=== PATIENT | female | born 1990 | race Hispanic/Latino ===

== ENCOUNTER 2018-01-31 06:32 | Emergency (ER) | payer SELFPAY ==
[2018-01-31] MEDS ORDERED: KETOROLAC 30 MG/ML INJ ONE (07:20)
--- NOTE | 2018-01-31 07:39 | ER ---
Nurse's Notes [facility] Name: Neha See Age: 27 yrs Sex: Female : 1990 Arrival Date: 01/31/2018 Time: 06:33 Bed 4 Private MD: Vasquez Mccain E Diagnosis: Endometriosis;Abdominal and pelvic pain Presentation: 01/31 06:40 Presenting complaint: Patient states: I'm having lower abdominal cramping and tl2 inflammation. I was diagnosed with endometriosis 2 years ago but haven't had any issues since then. I think I just need an anti inflammatory. Transition of care: patient was not received from another setting of care. Onset of symptoms was January 30, 2018. Initial Sepsis Screen: Does the patient meet any 2 criteria? No. Patient's initial sepsis screen is negative. Does the patient have a suspected source of infection? No. Patient's initial sepsis screen is negative. Care prior to arrival: None. 06:40 Method Of Arrival: Ambulatory tl2 06:40 Acuity: ARVIN 4 tl2 Triage Assessment: 06:43 General: Appears in no apparent distress. comfortable, Behavior is calm, cooperative, tl2 appropriate for age. Pain: Complains of pain in suprapubic area Pain radiates to back Pain currently is 5 out of 10 on a pain scale. Quality of pain is described as crampy. Neuro: Level of Consciousness is awake, alert, obeys commands, Oriented to person, place, time, situation. Cardiovascular: Denies chest pain. Respiratory: Airway is patent Respiratory effort is even, unlabored, Respiratory pattern is regular, symmetrical. GI: Abdomen is non-distended, Reports lower abdominal pain, cramping, Patient currently denies diarrhea, nausea, vomiting. : Denies discharge, vaginal bleeding. Derm: Skin is pink, warm \T\ dry. 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 - Social history:: Smoking status: Patient/guardian denies using tobacco. Screenin:45 Abuse screen: Denies threats or abuse. Nutritional screening: No deficits noted. tl2 Tuberculosis screening: No symptoms or risk factors identified. Fall Risk None identified. Assessment: 06:45 General: see triage assessment. tl2 07:40 General: Appears in no apparent distress. comfortable, Behavior is calm, cooperative. iw Pain: Complains of pain in suprapubic area. Neuro: Level of Consciousness is awake, alert, obeys commands, Oriented to person, place, time, Moves all extremities. Full function. Cardiovascular: Capillary refill < 3 seconds in bilateral fingers Patient's skin is warm and dry. GI: Bowel sounds present X 4 quads. Abd is soft and non tender X 4 quads. Reports lower abdominal pain. : Reports pain in suprapubic area. Derm: Skin is pink, warm \T\ dry. normal. Musculoskeletal: Range of motion: intact in all extremities. Vital Signs: 06:43 BP 116 / 72; Pulse 77; Resp 18; Temp 97.6; Pulse Ox 99% on R/A; Weight 77.11 kg; Height tl2 5 ft. 3 in. (160.02 cm); Pain 5/10; 06:43 Body Mass Index 30.11 (77.11 kg, 160.02 cm) tl2 ED Course: 06:33 Patient arrived in ED. am2 06:34 Vasquez Mccain MD is Private Physician. am2 06:36 Vishal Kraus, RN is Primary Nurse. bp 06:43 Triage completed. tl2 06:43 Arm band placed on right wrist. tl2 06:44 Fritz Arriaga PA is PHCP. jr8 06:44 Arben Rollins MD is Attending Physician. jr8 06:45 Patient has correct armband on for positive identification. Bed in low position. Call tl2 light in reach. Side rails up X 1. 07:20 Primary Nurse role handed off by Vishal Kraus, RN iw 07:20 Coretta Ayoub, RN is Primary Nurse. iw 07:53 No provider procedures requiring assistance completed. Patient did not have IV access iw during this emergency room visit. Administered Medications: 07:36 Drug: TORadol 60 mg Route: IM; Site: right gluteus; hj 07:54 Follow up: Response: No adverse reaction iw Outcome: 07:39 Discharge ordered by . jr8 07:53 Discharged to home ambulatory. iw 07:53 Condition: good 07:53 Discharge instructions given to patient, Instructed on discharge instructions, follow up and referral plans. medication usage, Demonstrated understanding of instructions, follow-up care, medications, Prescriptions given X 2. 07:54 Patient left the ED. iw Signatures: Coretta Ayoub RN RN Fritz Reeder PA PA jr8 Wei Wang RN RN hj Knox, Taylor, RN RN tl2 Summer Lee am2 Vishal Kraus RN RN bp
--- NOTE | 2018-01-31 07:39 | EDPHYS ---
Physician Documentation [facility] Name: Neha See Age: 27 yrs Sex: Female : 1990 Arrival Date: 01/31/2018 Time: 06:33 Bed 4 Private MD: Vasquez Mccain E ED Physician Arben Rollins HPI: 01/31 07:37 This 27 yrs old Female presents to ER via Ambulatory with complaints of jr8 Abdominal Swelling. 07:37 The patient presents with abdominal pain in the lower abdomen. Onset: The jr8 symptoms/episode began/occurred acutely, yesterday. The symptoms do not radiate. Associated signs and symptoms: none. The symptoms are described as crampy, dull. Modifying factors: The symptoms are alleviated by nothing, the symptoms are aggravated by nothing. Severity of pain: At its worst the pain was mild in the emergency department the pain is unchanged. The patient has experienced similar episodes in the past, several times. The patient has not recently seen a physician. History of endometriosis. Stated that she has pain on/off that sometimes is worse and requires antiinflammatory medicine. Started to become worse yesterday and was not being controlled by OTC medicine . 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 - Social history:: Smoking status: Patient/guardian denies using tobacco. ROS: 07:37 Eyes: Negative for injury, pain, redness, and discharge, ENT: Negative for injury, jr8 pain, and discharge, Neck: Negative for injury, pain, and swelling, Cardiovascular: Negative for chest pain, palpitations, and edema, Respiratory: Negative for shortness of breath, cough, wheezing, and pleuritic chest pain, Back: Negative for injury and pain, MS/Extremity: Negative for injury and deformity, Skin: Negative for injury, rash, and discoloration, Neuro: Negative for headache, weakness, numbness, tingling, and seizure. 07:37 Abdomen/GI: Positive for abdominal pain, Negative for nausea, vomiting, and diarrhea, abdominal distension, anorexia, dysphagia, hematemesis, black/tarry stool, rectal pain, rectal bleeding, bowel incontinence, flatulence. Exam: 07:37 Eyes: Pupils equal round and reactive to light, extra-ocular motions intact. Lids and jr8 lashes normal. Conjunctiva and sclera are non-icteric and not injected. Cornea within normal limits. Periorbital areas with no swelling, redness, or edema. ENT: Nares patent. No nasal discharge, no septal abnormalities noted. Tympanic membranes are normal and external auditory canals are clear. Oropharynx with no redness, swelling, or masses, exudates, or evidence of obstruction, uvula midline. Mucous membranes moist. Neck: Trachea midline, no thyromegaly or masses palpated, and no cervical lymphadenopathy. Supple, full range of motion without nuchal rigidity, or vertebral point tenderness. No Meningismus. Cardiovascular: Regular rate and rhythm with a normal S1 and S2. No gallops, murmurs, or rubs. Normal PMI, no JVD. No pulse deficits. Respiratory: Lungs have equal breath sounds bilaterally, clear to auscultation and percussion. No rales, rhonchi or wheezes noted. No increased work of breathing, no retractions or nasal flaring. Abdomen/GI: Soft, non-tender, with normal bowel sounds. No distension or tympany. No guarding or rebound. No evidence of tenderness throughout. Back: No spinal tenderness. No costovertebral tenderness. Full range of motion. Skin: Warm, dry with normal turgor. Normal color with no rashes, no lesions, and no evidence of cellulitis. MS/ Extremity: Pulses equal, no cyanosis. Neurovascular intact. Full, normal range of motion. Neuro: Awake and alert, GCS 15, oriented to person, place, time, and situation. Cranial nerves II-XII grossly intact. Motor strength 5/5 in all extremities. Sensory grossly intact. Cerebellar exam normal. Normal gait. Vital Signs: 06:43 BP 116 / 72; Pulse 77; Resp 18; Temp 97.6; Pulse Ox 99% on R/A; Weight 77.11 kg; Height tl2 5 ft. 3 in. (160.02 cm); Pain 5/10; 06:43 Body Mass Index 30.11 (77.11 kg, 160.02 cm) tl2 MDM: 06:44 Patient medically screened. jr8 07:37 Data reviewed: vital signs, nurses notes, lab test result(s), and as a result, I will jr8 discharge patient. Data interpreted: Pulse oximetry: on room air is 99 %. Interpretation: normal. Counseling: I had a detailed discussion with the patient and/or guardian regarding: the historical points, exam findings, and any diagnostic results supporting the discharge/admit diagnosis, lab results, the need for outpatient follow up, an OB/Gyne specialist, to return to the emergency department if symptoms worsen or persist or if there are any questions or concerns that arise at home. 01/31 07:13 Order name: Urine Dipstick--Ancillary (enter results) 01/31 07:14 Order name: Urine --Ancillary (enter results) 01/31 06:44 Order name: Urine Test (obtain specimen); Complete Time: 07:12 jr8 01/31 06:44 Order name: Urine Dipstick-Ancillary (obtain specimen); Complete Time: 07:12 jr8 Administered Medications: 07:36 Drug: TORadol 60 mg Route: IM; Site: right gluteus; 07:54 Follow up: Response: No adverse reaction Disposition: 08:16 Co-signature as Attending Physician, Arben Rollins MD I agree with the assessment and deandra plan of care. Disposition: 01/31/18 07:39 Discharged to Home. Impression: Endometriosis, Abdominal and pelvic pain. - Condition is Stable. - Discharge Instructions: Abdominal Pain, Adult. - Prescriptions for Ibuprofen 800 mg Oral Tablet - take 1 tablet by ORAL route every 12 hours As needed take with food; 20 tablet. Tramadol 50 mg Oral Tablet - take 1 tablet by ORAL route every 8 hours as needed; 12 tablet. - Work release form, Medication Reconciliation Form, Thank You Letter, Antibiotic Education, Prescription Opioid Use form. - Follow up: Private Physician; When: 2 - 3 days; Reason: Recheck today's complaints, Continuance of care, Re-evaluation by your physician. - Problem is new. - Symptoms have improved. Signatures: Dispatcher [employer] Arben Sim MD MD cha Williams, Irene, RN RN Fritz Arriaga PA PA jr8 Wei Wang RN RN Marion Perez RN RN tl2 Corrections: (The following items were deleted from the chart) 07:54 07:39 01/31/2018 07:39 Discharged to Home. Impression: Endometriosis; Abdominal and iw pelvic pain. Condition is Stable. Forms are Medication Reconciliation Form, Thank You Letter, Antibiotic Education, Prescription Opioid Use. Follow up: Private Physician; When: 2 - 3 days; Reason: Recheck today's complaints, Continuance of care, Re-evaluation by your physician. Problem is new. Symptoms have improved. jr8
[2018-01-31 08:17] LABS: Urine Blood NEGATIVE (NEG); Urine Glucose NEGATIVE (NEG); Urine Protein TRACE (NEG); Urine pH 6.5 (5.0-7.0)
== END 2018-01-31 07:54 | disposition home or self-care (01) ==
LOC: ER 06:32
DX: N80.9 Endometriosis, unspecified (principal)
CPT/HCPCS: 81003; 81025; 96372; 99283

== ENCOUNTER 2025-06-29 13:46 | Emergency (ER) | payer OTHER, SELFPAY ==
[2025-06-29] MEDS ORDERED: SMZ./TMP. 800/160 MG TABLET ONE (14:24)
[2025-06-29] MEDS ORDERED: LIDOCAINE 1% MPF 2 ML AMPULE ONE (14:24)
--- NOTE | 2025-06-29 14:33 | EDPHYS ---
Physician Documentation [facility] Name: Neha See Age: 34 yrs Sex: Female : 1990 Arrival Date: 06/29/2025 Time: 13:46 Bed DX3 Private MD: ED Physician Marcin Siddiqi HPI: 06/29 14:17 This 34 yrs old Female presents to ER via Unassigned with complaints of Finger kb Swelling, Finger Pain. 14:17 Pt is a 34 year old female who presents for redness, swelling and pain around right kb ring finger nailbed that started one week ago. Denies fever. . Historical: - Allergies: 14:20 HYDROCODONE; dd2 - PMHx: 14:20 None; dd2 - PSHx: 14:20 None; dd2 - Immunization history:: Adult Immunizations up to date. - Infectious Disease History:: Denies. - Social history:: Smoking status: Patient denies any tobacco usage or history of. ROS: 14:17 Constitutional: As per HPI kb Exam: 14:17 Constitutional: This is a well developed, well nourished patient who is awake, alert, kb and in no acute distress. Head/Face: Normocephalic, atraumatic. ENT: Moist Mucous membranes Respiratory: Respirations even and unlabored. No increased work of breathing. Talking in full sentences MS/ Extremity: Pulses equal, no cyanosis. Neurovascular intact. Full, normal range of motion. Neuro: Awake and alert, GCS 15, oriented to person, place, time, and situation. 14:17 Skin: abscess, that is small, of the dorsal aspect of distal phalanx of right ring finger, with induration, Vital Signs: 14:16 BP 123 / 79; Pulse 85; Resp 16; Temp 98.3; Pulse Ox 100% ; Weight 77.11 kg; Height 5 dd2 ft. 3 in. ; Pain 8/10; 14:16 Body Mass Index 30.11 (77.11 kg, 160.02 cm) dd2 14:16 Pain Scale: Adult dd2 Procedures: 14:33 I \T\ D: Incision and drainage was performed for an abscess of the right dorsal aspect of kb distal phalanx of right ring finger Prepped with alcohol, Anesthetized with 0.5 ml's 1% Lidocaine. Incised with 18G needle. Drained small amount purulent fluid. Dressing: non-Adherent dressing, the patient tolerated the procedure well. MDM: 14:02 Medical Screening Exam initiated 14:33 Differential diagnosis: paronychia, abscess, cellulitis. Data reviewed: vital signs, kb nurses notes. Counseling: I had a detailed discussion with the patient and/or guardian regarding the historical points, exam findings, and any diagnostic results supporting the discharge/admit diagnosis, the need for outpatient follow up, a family practitioner, to return to the emergency department if symptoms worsen or persist or if there are any questions or concerns that arise at home. Administered Medications: 14:27 Drug: Trimethoprim-Sulfamethoxazole PO (160 mg-800 mg (DS) 1 tablet PO once Route: PO; 14:45 Follow up: Response: No adverse reaction; Medication Administered at Departure 14:28 Drug: Lidocaine Infiltration (1 %) 5 mg Infiltration once {Note: administered now by beck Cotton NP.} Route: Infiltration; Disposition Summary: 06/29/25 14:32 Discharge Ordered Notes: Location: Home Condition: Stable kb Diagnosis - Cutaneous abscess of right hand - paronychia ring finger kb Followup: kb - With: Private Physician - When: 2 - 3 days - Reason: Recheck today's complaints, Continuance of care, Re-evaluation by your physician Followup: kb - With: Emergency Department - When: As needed - Reason: Worsening of condition Discharge Instructions: - Discharge Summary Sheet kb - Paronychia, [id number] kb Forms: - Medication Reconciliation Form kb - Antibiotic Education kb - Prescription Opioid Use kb - Patient Portal Instructions kb - Leadership Thank You Letter kb Prescriptions: - Bactrim DS 800-160 mg Oral Tablet - take 1 tablet ORAL route every 12 hours for 10 days; 20 tablet; Refills: 0, kb Product Selection Permitted Signatures: Llua Brooks, Neelima Hsieh RN RN RUSSELL Mack RN RN dd2
--- NOTE | 2025-06-29 14:33 | ER ---
Nurse's Notes [facility] Name: Neha See Age: 34 yrs Sex: Female : 1990 Arrival Date: 06/29/2025 Time: 13:46 Bed DX3 Private MD: Diagnosis: Cutaneous abscess of right hand-paronychia ring finger Presentation: 06/29 14:16 Chief complaint: Patient states: SWELLING AND PAIN TO RT RING FINGER X 1 WEEK. dd2 Coronavirus screen: At this time, the client does not indicate any symptoms associated with coronavirus-19. Ebola Screen: No symptoms or risks identified at this time. Initial Sepsis Screen: Does the patient meet any 2 criteria? No. Patient's initial sepsis screen is negative. Does the patient have a suspected source of infection? No. Patient's initial sepsis screen is negative. Risk Assessment: Do you want to hurt yourself or someone else? Patient reports no desire to harm self or others. Onset of symptoms was June 22, 2025. 14:16 Method Of Arrival: Ambulatory dd2 14:16 Acuity: ARVIN 4 dd2 Triage Assessment: 14:20 General: Appears in no apparent distress. uncomfortable, Behavior is calm, cooperative, dd2 appropriate for age. Pain: Complains of pain in dorsal aspect of distal phalanx of right ring finger. Derm: Skin is red, RT 4TH FINGER. Derm: Reports pain that is 8 out of 10 on a pain scale. Musculoskeletal: Swelling present in dorsal aspect of distal phalanx of right ring finger. Historical: - Allergies: 14:20 HYDROCODONE; dd2 - PMHx: 14:20 None; dd2 - PSHx: 14:20 None; dd2 - Immunization history:: Adult Immunizations up to date. - Infectious Disease History:: Denies. - Social history:: Smoking status: Patient denies any tobacco usage or history of. Screenin:30 Abuse screen: Denies threats or abuse. Denies injuries from another. Nutritional ss screening: No deficits noted. Tuberculosis screening: Never had TB. Assessment: 14:28 General: Appears in no apparent distress. comfortable, Behavior is calm, cooperative, ss Denies fever. Pain: Complains of pain in dorsal aspect of distal phalanx of right ring finger Pain currently is 8 out of 10 on a pain scale. Quality of pain is described as tender, Is continuous. Neuro: Level of Consciousness is awake, alert, obeys commands, Oriented to person, place, time, situation. Respiratory: Airway is patent Respiratory effort is even, unlabored, Respiratory pattern is regular, symmetrical. Derm: Skin is intact, is healthy with good turgor, Skin is pink, warm \T\ dry. normal. Vital Signs: 14:16 BP 123 / 79; Pulse 85; Resp 16; Temp 98.3; Pulse Ox 100% ; Weight 77.11 kg; Height 5 dd2 ft. 3 in. ; Pain 8/10; 14:16 Body Mass Index 30.11 (77.11 kg, 160.02 cm) dd2 14:16 Pain Scale: Adult dd2 ED Course: 13:50 Patient arrived in ED. cj3 13:59 [facility]ula Brooks [facility]C [facility]. kb 13:59 Marcin Siddiqi MD is Attending Physician. kb 14:20 Triage completed. dd2 14:20 Arm band placed on right wrist. dd2 14:29 Assist provider with I \T\ D: of an abscess on right 4th finger. Patient did not have IV ss access during this emergency room visit. 14:45 Neelima Ramirez, RN is Primary Nurse. ss Administered Medications: 14:27 Drug: Trimethoprim-Sulfamethoxazole PO (160 mg-800 mg (DS) 1 tablet PO once Route: PO; 14:45 Follow up: Response: No adverse reaction; Medication Administered at Departure ss 14:28 Drug: Lidocaine Infiltration (1 %) 5 mg Infiltration once {Note: administered now by ARLINE Cotton.} Route: Infiltration; Outcome: 14:32 Discharge ordered by MD. kb 14:45 Discharged to home ambulatory, 14:45 Condition: good 14:45 Discharge instructions given to patient, Instructed on discharge instructions, follow up and referral plans. Demonstrated understanding of instructions, follow-up care, medications, Prescriptions given X 1, 14:45 Patient left the ED. Signatures: Lula Brooks, JEREMY MONTILLA-Neelima Matos RN RN RUSSELL KEMP RN RN dd2 Yolanda Herman cj3
[2025-06-29 15:34] VITALS: BP 123/79; TEMP 98.3; O2SAT 100
== END 2025-06-29 14:45 | disposition home or self-care (01) ==
LOC: ER 13:46
PROC: 0H9FXZZ Drainage of Right Hand Skin, External Approach (ICD-10-PCS; principal; 2025-06-29)
DX: L03.011 Cellulitis of right finger (principal)
CPT/HCPCS: 99283